=== PATIENT | male | born 2000 | race Hispanic/Latino ===

== ENCOUNTER 2025-09-11 16:36 | Emergency (ER) | payer SELFPAY ==
[2025-09-11] MEDS ORDERED: Dexamethasone 10 MG/ML VIAL ONE (17:22)
== END 2025-09-11 17:32 | disposition home or self-care (01) ==
LOC: CSHERS 16:36
DX: K05.00 Acute gingivitis, plaque induced (principal); J02.9 Acute pharyngitis, unspecified; F17.210 Nicotine dependence, cigarettes, uncomplicated; Z55.6 Problems related to health literacy
CPT/HCPCS: 99283; J1100